=== PATIENT | female | born 1990 | race African-American/Black ===

== ENCOUNTER 2025-05-18 16:36 | Emergency (ER) | payer OTHER ==
[~2025-05-18] VITALS: Ht 167.6 cm; Wt 77.0 kg
[2025-05-18 16:56] VITALS: TEMP 37; O2SAT 100
[2025-05-18] MEDS ORDERED: NAPR-681 MT (19:25)
[2025-05-18] MEDS ORDERED: LIDO-53 TP (19:25)
[2025-05-18] MEDS: KETOROLAC 30MG/ML VIAL IM ONE (19:50)
[2025-05-18] MEDS: LIDOCAINE 5% PATCH TOP SCH (19:51)
[2025-05-18 19:53] VITALS: BP 151/94; PULSE 84; RESP 16; O2SAT 100
== END 2025-05-18 19:58 | disposition home or self-care (01) ==
LOC: ER 16:36
DX: S40.022A Contusion of left upper arm, initial encounter (principal); S40.021A Contusion of right upper arm, initial encounter; M54.50 Low back pain, unspecified; R51.9 Headache, unspecified; J45.909 Unspecified asthma, uncomplicated; Z79.1 Long term (current) use of non-steroidal anti-inflammatories (NSAID); Z98.890 Other specified postprocedural states; V89.2XXA Person injured in unspecified motor-vehicle accident, traffic, initial encounter; Y93.89 Activity, other specified; Y92.89 Other specified places as the place of occurrence of the external cause; Y99.8 Other external cause status
CPT/HCPCS: 71045; 73090; 70450; 72125; 74176; 96372; 99285; J1885; Z7610